=== PATIENT | female | born 1985 | race Caucasian/White ===

== ENCOUNTER 2016-11-21 06:18 | Inpatient (IN) | payer OTHER ==
[~2016-11-21] VITALS: Ht 162.6 cm; Wt 79.0 kg
[~2016-11-21 06:18] MED LIST: DOXY100C15 PO
[2016-11-21] MEDS ORDERED: OXYTOCIN 30U/ 0.9% NaCL 500ML 500 ML IV SCH (06:22)
[2016-11-21] MEDS ORDERED: LACTATED RINGERS 1,000 ML IV SCH ×2 (06:22→06:30)
[2016-11-21] MEDS ORDERED: LACTATED RINGERS 1,000 ML IVBOLUS ONE (06:30)
[2016-11-21] MEDS ORDERED: SODIUM CITRATE/CITRIC ACID 30 ML UDC PO ONE (06:30)
[2016-11-21] MEDS ORDERED: METOCLOPRAMIDE 5 MG/ML, 2ML IV ONE (06:30)
[2016-11-21 06:43] VITALS: BP 105/62
[2016-11-21] MEDS ORDERED: NEWBORN KIT ONE (07:03)
[2016-11-21] MEDS ORDERED: OXYTOCIN 30U/ 0.9% NaCL 500ML 500 ML ONE (07:03)
[2016-11-21] MEDS ORDERED: SODIUM CITRATE/CITRIC ACID 30 ML UDC ONE (07:29)
[2016-11-21] MEDS ORDERED: METOCLOPRAMIDE 5 MG/ML, 2ML ONE (07:29)
[2016-11-21] MEDS ORDERED: FENTANYL PF 100 MCG/2ML ONE ×2 (07:32→11:34)
[2016-11-21] MEDS ORDERED: HYDROmorphone 2 MG/ML, 1ML ONE (07:33)
[2016-11-21] MEDS: OXYTOCIN 30U/ 0.9% NaCL 500ML 500 ML IV SCH ×2 (09:21→19:21)
[2016-11-21] MEDS: LACTATED RINGERS 1,000 ML IV SCH ×4 (09:21→17:21)
[2016-11-21] MEDS ORDERED: MEPERIDINE/PF 50 MG/ML ONE (09:27)
[2016-11-21] MEDS ORDERED: ONDANSETRON 2MG/ML, 2ML IV PRN (09:30)
[2016-11-21] MEDS ORDERED: MISOPROSTOL 200 MCG TABLET PR PRN (09:30)
[2016-11-21] MEDS ORDERED: DIPH,PERTUSS(ACELL),TET VAC/PF NC IM-VACC PRN (09:30)
[2016-11-21] MEDS ORDERED: CARBOPROST TROMETHAMINE 250 MCG/ML, 1ML IM PRN (09:30)
[2016-11-21] MEDS ORDERED: ACETAMINOPHEN 325 MG TABLET PO PRN ×3 (09:30)
[2016-11-21] MEDS ORDERED: morphine SULFATE 10 MG/ML, 1ML IVPush PRN ×2 (09:30)
[2016-11-21] MEDS ORDERED: GLYCERIN ADULT SUPP PR PRN (09:30)
[2016-11-21] MEDS ORDERED: OXYcodone/APAP 5/325MG TABLET PO PRN ×2 (09:30)
[2016-11-21] MEDS ORDERED: METHYLERGONOVINE 0.2 MG/ML IM PRN (09:30)
[2016-11-21] MEDS ORDERED: CALCIUM CARBONATE 500 MG TAB.CHEW PO PRN (09:30)
[2016-11-21] MEDS ORDERED: BISACODYL 10 MG SUPP PR PRN (09:30)
[2016-11-21] MEDS ORDERED: MEASLES,MUMPS&RUBELLA VACC/PF 0.5 ML SQ-VACC PRN (09:30)
[2016-11-21] MEDS ORDERED: OXYcodone 5 MG/5 ML ORAL.SOL UDC ONE ×2 (10:53→11:11)
[2016-11-21] MEDS ORDERED: ONDANSETRON 2MG/ML, 2ML ONE (10:53)
[2016-11-21] MEDS ORDERED: CEFAZOLIN 1,000 MG ONE (10:53)
[2016-11-21] MEDS: OXYcodone 5 MG/5 ML ORAL.SOL UDC PO PRN ×2 (11:02→22:32)
[2016-11-21 12:00] VITALS: BP 109/67
[2016-11-21] MEDS ORDERED: CARBOPROST TROMETHAMINE 250 MCG/ML, 1ML IM ONE (12:00)
[2016-11-21] MEDS ORDERED: METHYLERGONOVINE 0.2 MG/ML IM ONE (12:00)
[2016-11-21 13:41] LABS: DIFF TOTAL CELLS COUNTED 100 CELL DIFF
[2016-11-21 13:43] LABS: VERIFY COUNTS? YES
[2016-11-21 13:44] LABS: ANISOCYTOSIS 1+; MICROCYTOSIS 1+; OVALOCYTES 1+; POLYCHROMASIA 1+
[2016-11-21 13:45] LABS: GIANT PLATELETS 1+; LARGE PLATELETS 1+
[2016-11-21] MEDS: KETOROLAC 30 MG/1 ML IVPush SCH ×2 (14:21→21:05)
[2016-11-21 16:00] VITALS: BP 92/53
[2016-11-21 20:00] VITALS: BP 94/61
[2016-11-21] MEDS: DOCUSATE 100 MG CAPSULE PO PRN (22:05)
[2016-11-21] MEDS: SIMETHICONE 80 MG CHEW TAB PO PRN (22:05)
[2016-11-22] MEDS: LACTATED RINGERS 1,000 ML IV SCH ×5 (01:21→17:21)
[2016-11-22] MEDS: KETOROLAC 30 MG/1 ML IVPush SCH ×4 (02:58→20:43)
[2016-11-22] MEDS: OXYcodone 5 MG/5 ML ORAL.SOL UDC PO PRN ×2 (03:09→07:52)
[2016-11-22 04:40] VITALS: BP 87/49
[2016-11-22] MEDS: OXYTOCIN 30U/ 0.9% NaCL 500ML 500 ML IV SCH ×2 (05:21→15:21)
[2016-11-22] MEDS: DOCUSATE 100 MG CAPSULE PO PRN ×2 (07:51→20:43)
[2016-11-22] MEDS: PRENATAL VIT/IRON/FA 1 EACH TABLET PO SCH (07:51)
[2016-11-22 07:53] VITALS: BP 96/49
[2016-11-22] MEDS ORDERED: DIPHENHYDRAMINE 25 MG CAPSULE PO PRN (11:30)
[2016-11-22] MEDS: HYDROcodone/APAP 5/325 TABLET PO PRN ×3 (12:34→18:41)
[2016-11-22 20:20] VITALS: BP 101/61
[2016-11-22] MEDS: FERROUS GLUCONATE 324 MG TABLET PO SCH (20:43)
[2016-11-22] MEDS ORDERED: ACETAMINOPHEN 325 MG TABLET PO PRN ×3 (21:00)
[2016-11-22] MEDS ORDERED: GLYCERIN ADULT SUPP PR PRN (21:00)
[2016-11-23] MEDS: OXYTOCIN 30U/ 0.9% NaCL 500ML 500 ML IV SCH (01:21)
[2016-11-23] MEDS: LACTATED RINGERS 1,000 ML IV SCH ×4 (01:21→23:30)
[2016-11-23] MEDS: HYDROcodone/APAP 5/325 TABLET PO PRN ×4 (01:59→20:26)
[2016-11-23] MEDS: SIMETHICONE 80 MG CHEW TAB PO PRN ×3 (02:49→20:26)
[2016-11-23] MEDS: KETOROLAC 30 MG/1 ML IVPush SCH ×3 (02:49→23:50)
[2016-11-23 07:19] VITALS: BP 101/63
[2016-11-23] MEDS: METOCLOPRAMIDE 5 MG/ML, 2ML IV PRN ×2 (07:42→23:37)
[2016-11-23] MEDS: PRENATAL VIT/IRON/FA 1 EACH TABLET PO SCH (08:23)
[2016-11-23] MEDS: DOCUSATE 100 MG CAPSULE PO PRN ×2 (08:23→20:26)
[2016-11-23] MEDS ORDERED: IBUP-1222 PO (14:40)
[2016-11-23] MEDS ORDERED: DOCU-30 PO (14:42)
[2016-11-23] MEDS ORDERED: HYDR-3240 PO (14:43)
[2016-11-23] MEDS ORDERED: FERR325T16 PO (14:44)
[2016-11-23] MEDS: IBUPROFEN 200 MG TABLET PO PRN ×2 (15:21→22:22)
[2016-11-23] MEDS ORDERED: MAGNESIUM HYDROXIDE 8%, 30ML UDC PO ONE (16:00)
[2016-11-23] MEDS: FERROUS GLUCONATE 324 MG TABLET PO SCH (17:00)
[2016-11-23 20:10] VITALS: BP 111/64
[2016-11-23 22:04] LABS: ASPARTATE AMINO TRANSFERASE 19 U/L (15-37); BLOOD UREA NITROGEN 4 mg/dL (7-18)
[2016-11-23 22:19] LABS: DIFF TOTAL CELLS COUNTED 100 CELL DIFF
[2016-11-23 22:20] LABS: LARGE PLATELETS 1+; VERIFY COUNTS? YES
[2016-11-24 01:50] VITALS: BP 103/67
[2016-11-24] MEDS ORDERED: KETOROLAC 30 MG/1 ML IM SCH (04:30)
[2016-11-24] MEDS: KETOROLAC 30 MG/1 ML IVPush SCH (04:36)
[2016-11-24] MEDS: SIMETHICONE 80 MG CHEW TAB PO PRN (04:36)
[2016-11-24] MEDS ORDERED: KETOROLAC 30 MG/1 ML IVPush SCH (06:00)
[2016-11-24] MEDS: LACTATED RINGERS 1,000 ML IV SCH (06:05)
[2016-11-24] MEDS: METOCLOPRAMIDE 5 MG/ML, 2ML IV PRN ×2 (06:05→12:50)
[2016-11-24 07:13] VITALS: BP 106/62
[2016-11-24] MEDS: PRENATAL VIT/IRON/FA 1 EACH TABLET PO SCH (09:10)
[2016-11-24] MEDS: DOCUSATE 100 MG CAPSULE PO PRN (09:11)
== END 2016-11-24 16:10 | disposition home or self-care (01) | DRG 765 ==
LOC: LDIP 06:18 → 2NW 10:41
PROVIDERS: ADMIT Obstetrics & Gynecology; ATTEND Obstetrics & Gynecology
PROC: 10D00Z1 Extraction of Products of Conception, Low, Open Approach (ICD-10-PCS; principal; 2016-11-21)
PROC: 0UB70ZZ Excision of Bilateral Fallopian Tubes, Open Approach (ICD-10-PCS; 2016-11-21)
DX: O34.219 Maternal care for unspecified type scar from previous cesarean delivery (principal); K56.7 Ileus, unspecified; Z90.49 Acquired absence of other specified parts of digestive tract; Z3A.39 39 weeks gestation of pregnancy; Z37.0 Single live birth; Z83.3 Family history of diabetes mellitus; Z82.49 Family history of ischemic heart disease and other diseases of the circulatory system; O99.02 Anemia complicating childbirth; D64.9 Anemia, unspecified; O75.4 Other complications of obstetric surgery and procedures
CPT/HCPCS: 36415; 80053; 85025; 86850; 86900; 86923; J0690; J1170; J1885; J2175; J2405; J3010; J2210; J2590; J2765; J7120